=== PATIENT | male | born 1970 | race African-American/Black ===

== ENCOUNTER → 2018-10-27 | Emergency (ER) | payer OTHER ==
[~2018-10-27] VITALS: Ht 185.4 cm; Wt 104.3 kg
[~2018-10-27] MED LIST: CATAFLAN; XANAX0.25 MG PO
== END | disposition home or self-care (01) ==
LOC: ER 23:30 → CPU-OBS 23:31
DX: R07.89 Other chest pain (principal)
CPT/HCPCS: G0378; G0379; 93005

== ENCOUNTER 2023-01-16 00:40 | Emergency (ER) | payer OTHER ==
[~2023-01-16] VITALS: Ht 185.4 cm; Wt 108.9 kg
== END 2023-01-16 02:33 | disposition home or self-care (01) ==
LOC: ER
DX: M25.552 Pain in left hip (principal)

== ENCOUNTER 2023-12-31 19:52 | Emergency (ER) | payer OTHER ==
[~2023-12-31] VITALS: Ht 185.4 cm; Wt 103.4 kg
[~2023-12-31 19:52] MED LIST changes: +COZAAR25 MG
[2023-12-31 20:01] VITALS: BP 141/78; O2SAT 96
[2023-12-31] MEDS ORDERED: LATANOPROST2.5 ML OP (20:03)
[2024-01-01] MEDS ORDERED: DEXAMETHASONE SODIUM PHOSPHATE 4 MG/ML VIAL IM STA (01:53)
[2024-01-01] MEDS ORDERED: KETOROLAC TROMETHAMINE 60 MG VIAL IM STA (01:53)
[2024-01-01] MEDS ORDERED: ACETAMINOPHEN WITH CODEINE 1 UDTAB TABLET PO STA (01:54)
== END 2024-01-01 02:49 | disposition home or self-care (01) ==
LOC: ER 19:54
DX: S83.91XA Sprain of unspecified site of right knee, initial encounter (principal); X58.XXXA Exposure to other specified factors, initial encounter; Y93.9 Activity, unspecified; Y92.89 Other specified places as the place of occurrence of the external cause; Y99.9 Unspecified external cause status

== ENCOUNTER 2024-11-21 22:45 | Emergency (ER) | payer OTHER ==
[~2024-11-21] VITALS: Ht 185.4 cm; Wt 111.1 kg
[~2024-11-21 22:45] MED LIST changes: +LATANOPROST2.5 ML OP
[2024-11-22] MEDS ORDERED: CEFTRIAXONE SODIUM 1,000 MG VIAL IM STA (00:56)
[2024-11-22] MEDS ORDERED: KETOROLAC TROMETHAMINE 30 MG VIAL IM STA (00:56)
[2024-11-22] MEDS ORDERED: LIDOCAINE HCL 1% 10ML VIAL ONE (01:21)
[2024-11-22] MEDS ORDERED: CEFTRIAXONE SODIUM 1,000 MG VIAL ONE (01:21)
[2024-11-22] MEDS ORDERED: KETOROLAC TROMETHAMINE 30 MG VIAL ONE (01:21)
== END 2024-11-22 04:07 | disposition home or self-care (01) ==
LOC: ER 22:45
DX: L03.011 Cellulitis of right finger (principal)

== ENCOUNTER 2025-01-27 20:20 | Emergency (ER) | payer OTHER ==
[~2025-01-27] VITALS: Ht 185.4 cm; Wt 108.9 kg
[2025-01-27] MEDS ORDERED: KETOROLAC TROMETHAMINE 30 MG VIAL ONE (23:38)
[2025-01-27] MEDS ORDERED: DEXAMETHASONE SODIUM PHOSPHATE 4 MG/ML VIAL ONE (23:38)
[2025-01-27] MEDS ORDERED: ORPHENADRINE CITRATE 30 MG/ML AMPUL ONE (23:38)
[2025-01-27] MEDS ORDERED: ORPHENADRINE CITRATE 30 MG/ML AMPUL IM ONE (23:45)
[2025-01-27] MEDS ORDERED: DEXAMETHASONE SODIUM PHOSPHATE 4 MG/ML VIAL IM ONE (23:45)
[2025-01-27] MEDS ORDERED: KETOROLAC TROMETHAMINE 30 MG VIAL IM ONE (23:45)
[2025-01-28] MEDS ORDERED: KETO10TA2 PO (03:19)
== END 2025-01-28 03:48 ==
LOC: ER 20:21
DX: S90.32XA Contusion of left foot, initial encounter (principal); S80.02XA Contusion of left knee, initial encounter; W18.39XA Other fall on same level, initial encounter; Y93.89 Activity, other specified; Y92.89 Other specified places as the place of occurrence of the external cause; Y99.9 Unspecified external cause status; M79.675 Pain in left toe(s)